=== PATIENT | female | born 1960 | race Caucasian/White ===

== ENCOUNTER 2018-08-06 08:10 | Emergency (ER) | payer OTHER ==
[~2018-08-06] VITALS: Ht 170.2 cm; Wt 73.1 kg
[2018-08-06 08:22] VITALS: Ht 170.2 cm; Wt 73.1 kg
[2018-08-06 09:28] VITALS: BP 161/98
== END 2018-08-06 09:28 | disposition home or self-care (01) ==
LOC: ED 08:10
DX: S00.33XA Contusion of nose, initial encounter (principal); W22.8XXA Striking against or struck by other objects, initial encounter; Y93.89 Activity, other specified; Y92.89 Other specified places as the place of occurrence of the external cause; Y99.8 Other external cause status